=== PATIENT | female | born 1995 | race Caucasian/White ===

== ENCOUNTER 2018-03-24 08:05 | Inpatient (IN) | payer OTHER ==
[2018-03-24] MEDS ORDERED: morphine 2 MG INJ IV (10:30)
[2018-03-24] MEDS ORDERED: MAGNESIUM HYDROXIDE 30ML CUP PO (10:30)
[2018-03-24] MEDS ORDERED: DOCUSATE SODIUM 100 MG CAP PO (10:30)
[2018-03-24] MEDS ORDERED: ACETAMINOPHEN 325 MG TAB PO (10:30)
[2018-03-24] MEDS ORDERED: hydrALAzine 20 MG INJ IV (10:30)
[2018-03-24] MEDS ORDERED: ONDANSETRON 4 MG INJ IV (10:30)
[2018-03-24] MEDS ORDERED: LORAZEPAM 2 MG INJ IV (10:30)
[2018-03-24] MEDS ORDERED: NA PHOSPHATE/BIPHOS 133 ML ENEMA PR (10:30)
[2018-03-24] MEDS ORDERED: NITROGLYCERIN (SL) 0.4 MG TAB SL (10:30)
[2018-03-24] MEDS ORDERED: HYDROCODONE/APAP (5/325) TAB PO (10:30)
[2018-03-24] MEDS ORDERED: NACL 0.9% 3 ML SYG IV (10:30)
[2018-03-24] MEDS: SOD CHLORIDE 0.45% 1,000 ML IV ×2 (11:18→23:43)
[2018-03-24 11:33] LABS: FREE T4 (FREE THYROXINE) 1.37 ng/dl (0.79-2.35)
[2018-03-24] MEDS: METHYLPREDNISOLONE 125 MG INJ IV ×2 (11:49→18:05)
[2018-03-24] MEDS: LEVOFLOXACIN 750MG/D5W (PMX) 150 ML IVPB (11:49)
[2018-03-24] MEDS: ALBUTEROL/IPRATROPIUM (NEB) 3 ML AMP HHN ×3 (13:55→21:38)
[2018-03-24] MEDS ORDERED: HEPARIN 5,000 UNIT/0.5 ML VIAL (20:22)
[2018-03-24] MEDS: HEPARIN 5,000 UNIT/1 ML VIAL SC (22:32)
[2018-03-25] MEDS: METHYLPREDNISOLONE 125 MG INJ IV ×3 (00:14→13:40)
[2018-03-25] MEDS: IPRATROPIUM (NEB) 0.5 MG/2.5 ML AMP HHN ×5 (01:17→16:48)
[2018-03-25] MEDS: LEVALBUTEROL (NEB) 0.63 MG/3 ML AMP HHN ×5 (01:17→16:48)
[2018-03-25 05:31] LABS: ADD MAN DIFF? NO
[2018-03-25] MEDS: SOD CHLORIDE 0.45% 1,000 ML IV (05:51)
[2018-03-25 05:53] LABS: WHITE BLOOD COUNT 17.9 10^3/ul (4.8-10.8)
[2018-03-25 05:53] LABS: BASOPHILS % 0.1 % (0.0-2.0); HEMATOCRIT 37.6 % (37.0-47.0); HEMOGLOBIN 12.3 g/dl (12.0-16.0); LYMPHOCYTES # 1.3 10^3/ul (0.8-2.9); LYMPHOCYTES % 7.1 % (15.0-51.0); MEAN CORPUSCULAR HEMOGLOBIN 28.9 pg (29.0-33.0); MEAN CORPUSCULAR HGB CONC 32.7 g/dl (32.0-37.0); MEAN CORPUSCULAR VOLUME 88.5 fl (82.0-101.0); MEAN PLATELET VOLUME 9.8 fl (7.4-10.4); MONOCYTE # 0.5 10^3/ul (0.3-0.9); MONOCYTES % 2.8 % (0.0-11.0); NEUTROPHILS % 89.4 % (39.0-77.0); PLATELET COUNT 352 10^3/UL (140-415); RED BLOOD COUNT 4.25 10^6/ul (4.20-5.40); RED CELL DISTRIBUTION WIDTH 13.9 % (11.5-14.5)
[2018-03-25 05:59] LABS: HEMOGLOBIN A1C 5.3 % (0-5.9)
[2018-03-25 06:28] LABS: ANION GAP 10 (5-13); BLOOD UREA NITROGEN 11 mg/dl (7-20); CALCIUM 8.8 mg/dl (8.4-10.2); CARBON DIOXIDE 23 mmol/L (21-31); CHLORIDE 105 mmol/L (97-110); CHOLESTEROL 155 mg/dl (100-200); CREATININE 0.42 mg/dl (0.44-1.00); Estimated GFR > 60 mL/min (>60); GLUCOSE 198 mg/dl (70-220); HDL CHOLESTEROL 51 mg/dl (33-83); LDL CHOLESTEROL,CALCULATED 94 mg/dl; POTASSIUM 4.6 mmol/L (3.5-5.1); SODIUM 138 mmol/L (135-144); TRIGLYCERIDES 49 mg/dl (0-149)
[2018-03-25 07:00] LABS: THYROID STIMULATING HORMONE 0.235 MIU/L (0.465-4.680)
[2018-03-25] MEDS ORDERED: HEPARIN 5,000 UNIT/0.5 ML VIAL (08:28)
[2018-03-25] MEDS: HEPARIN 5,000 UNIT/1 ML VIAL SC (10:12)
[2018-03-25] MEDS: LEVOFLOXACIN 750MG/D5W (PMX) 150 ML IVPB (13:40)
[2018-03-25 16:23] LABS: ADD UMIC YES; UR ASCORBIC ACID NEGATIVE (NEGATIVE); UR BACTERIA FEW /HPF (NONE SEEN); UR BILIRUBIN (Dip) NEGATIVE (NEGATIVE); UR BLOOD (Dip) 3+ mg/dL (NEGATIVE); UR CLARITY SLIGHTLY CLOUDY (CLEAR); UR COLOR YELLOW (YELLOW); UR GLUCOSE (Dip) 3+ mg/dL (NEGATIVE); UR KETONES (Dip) NEGATIVE (NEGATIVE); UR LEUKOCYTE ESTERASE (Dip) NEGATIVE Leu/ul (NEGATIVE); UR NITRITE (Dip) NEGATIVE (NEGATIVE); UR RBC > 182 /HPF (0-5); UR SPECIFIC GRAVITY (Dip) 1.021 (1.003-1.030); UR SQUAMOUS EPITHELIAL CELL FEW /HPF (FEW); UR TOTAL PROTEIN (Dip) 1+ mg/dl (NEGATIVE); UR UROBILINOGEN (Dip) NEGATIVE (NEGATIVE); UR WBC 78 /HPF (0-5)
== END 2018-03-25 18:10 | disposition home or self-care (01) | DRG 202 ==
LOC: PP2 08:05
PROVIDERS: Internal Medicine
DX: J45.901 Unspecified asthma with (acute) exacerbation (principal); N39.0 Urinary tract infection, site not specified
CPT/HCPCS: 71045; 80048; 80061; 81001; 83036; 83735; 84100; 84439; 84443; 85025; 87086; 94640; 94664